=== PATIENT | male | born 1970 | race Caucasian/White ===

== ENCOUNTER 2016-05-05 14:10 | Emergency (ER) | payer MEDICARE ==
[2016-05-05 14:23] VITALS: O2SAT 96
--- NOTE | 2016-05-05 14:37 | ERPHSYRPT ---
- History of Present Illness Time Seen by Provider: 05/05/16 14:27 Source: other (patient's caregiver) Exam Limitations: other (patient with history of Down's with poor communication) Patient Subjective Stated Complaint: PT CAREGIVER REPORTS NOTICING A BRUISE TO RIGHT LOWER LEG-REPORTS TODAY AREA IS WARM TO TOUCH-UNSURE OF ANY INJURY Triage Nursing Assessment: PT UNABLE TO ANSWER QUESTIONS-NO SWELLING NO REDNESS NO WARM AREA NOTED-PEDAL PULSES PRESENT-SLIGHT BRUISING NOTED TO XIONG Physician History: This is a 45-year-old white male with history of Down syndrome, PTSD, OCD, cerebral palsy, hearing loss, borderline cardiac enlargement, mitral valve prolapse, chronic otitis media, tinea pedis, osteoporosis, a vitamin, and seborrhea He is brought by his caregiver with complaint that the patient has some mild discoloration of the right anterior xiong caregiver is concerned that the patient has some swelling in the area and they're worried about a blood clot. There is no real history of trauma however patient is unable to express whether he was injured or not. Patient does have some brownish discoloration of the right anterior xiong and some slight tenderness with palpation with slight edema anteriorly. Past medical history as noted above. Method of Injury: unknown Occurred: this morning (patient was noted this morning to have swelling and slight brownish discoloration of skin right anterior leg) Quality: constant Severity of Pain-Max: mild Severity of Pain-Current: mild Lower Extremities Pain: leg: right Modifying Factors: Improves With: nothing Associated Symptoms: none Allergies/Adverse Reactions: clindamycin Allergy (Intermediate, Verified 05/05/16 14:23) Hives Home Medications: Risperidone [Risperdal] 0.5 mg PO BID 05/05/16 [History] Sertraline HCl 50 mg [Zoloft 50 mg Tablet] 50 mg PO BID 05/05/16 [History] Hx Tetanus, Diphtheria Vaccination/Date Given: No Hx Influenza Vaccination/Date Given: Yes (2015) Hx Pneumococcal Vaccination/Date Given: Yes Immunizations Up to Date: Yes - Review of Systems Constitutional: No Fever, No Chills Eyes: No Symptoms Ears, Nose, & Throat: No Symptoms Respiratory: No Cough, No Dyspnea Cardiac: No Chest Pain, No Edema, No Syncope Abdominal/Gastrointestinal: No Abdominal Pain, No Nausea, No Vomiting, No Diarrhea Genitourinary Symptoms: No Dysuria Musculoskeletal: Other (brownish discoloration skin anterior right leg slight swelling of right anterior leg tenderness with palpation right anterior leg) Skin: Other (light brownish discoloration right anterior leg) Neurological: No Dizziness, No Focal Weakness, No Sensory Changes Psychological: No Symptoms Endocrine: No Symptoms All Other Systems: Reviewed and Negative - Past Medical History Pertinent Past Medical History: Yes Other Medical History: DOWN SYNDROME - Past Surgical History Past Surgical History: No - Social History Smoking Status: Never smoker Exposure to second hand smoke: No Drug Use: none Patient Lives Alone: No - Nursing Vital Signs Nursing Vital Signs: Initial Vital Signs Temperature 97.8 F Temperature Source Oral Pulse Rate 64 Respiratory Rate 16 Blood Pressure [] 96/63 Pain Intensity 0 - Physical Exam General Appearance: alert, other (white male he is alert cooperative in no apparent distress) Eyes, Ears, Nose, Throat Exam: moist mucous membranes Neck Exam: non-tender, supple Cardiovascular/Respiratory Exam: chest non-tender, normal breath sounds, regular rate/rhythm, no respiratory distress Gastrointestinal/Abdominal Exam: non-tender, guarding Back Exam: normal inspection, No vertebral tenderness Hips Exam: bilateral: non-tender, normal inspection, normal range of motion, no evidence of injury Legs Exam: right leg: other (right anterior leg with brownish discoloration anteriorly slight edema anteriorly and tenderness with palpation at mid leg level), left leg: non-tender, normal inspection, no evidence of injury, bilateral leg: normal range of motion Knees Exam: bilateral knee: non-tender, normal inspection, normal range of motion, no evidence of injury Ankle Exam: bilateral ankle: non-tender, normal inspection, normal range of motion, no evidence of injury Foot Exam: bilateral foot: non-tender, normal inspection, normal range of motion , no evidence of injury DTR - Lower Extremities Exam: ankle (R): 2+, ankle (L): 2+ Neuro/Tendon Exam: normal sensation, normal motor functions Mental Status Exam: alert, cooperative, other (patient is oriented to himself able to answer questions but difficult to understand this is his norm) Skin Exam: other (Slight brownish discoloration right anterior xiong) SpO2 Interpretation: normal (96%) SpO2: 96 Oxygen Delivery: Room Air - Course Nursing assessment & vital signs reviewed: Yes - Radiology Exams Right Lower Leg X-ray Interpretation: Discussed w/ radiologist, Negative, No Fracture, No Subluxation Ordered Tests: Active Orders 24 hr Category Date Time Status LOWER LEG Stat Exams 05/05/16 14:31 Completed BMP Stat Lab 05/05/16 15:00 Completed CBC W DIFF Stat Lab 05/05/16 15:00 Completed D-DIMER QUANTITATION Stat Lab 05/05/16 15:00 Completed Lab/Rad Data: Laboratory Result Diagrams 05/05/16 15:00 05/05/16 15:00 Laboratory Results 05/05/16 05/05/16 05/05/16 Range/Units 15:00 15:00 15:00 WBC 5.4 (4.0-10.5) K/mm3 RBC 4.01 L (4.1-5.6) M/mm3 Hgb 13.3 (12.5-18.0) gm/dl Hct 39.6 L (42-50) % MCV 98.8 (78-100) fl MCH 33.1 H (26-32) pg MCHC 33.6 (32-36) g/dl RDW 14.1 H (11.5-14.0) % Plt Count 244 (150-450) K/mm3 MPV 9.5 (6-9.5) fl Gran % 48.2 (36.0-66.0) % Lymphocytes % 33.7 (24.0-44.0) % Monocytes % 14.8 H (0.0-12.0) % Eosinophils % 1.3 (0.00-5.0) % Basophils % 2.0 (0.0-0.4) % Basophils # 0.11 (0-0.4) D-Dimer 0.371 (0.00-0.49) mg/L Sodium 140 (136-145) mEq/L Potassium 4.2 (3.5-5.1) mEq/L Chloride 106 (98-107) mEq/L Carbon Dioxide 24.6 (21-32) mEq/L Anion Gap 14.0 (5-15) MEQ/L BUN 24 H (9-20) mg/dL Creatinine 1.10 (0.55-1.30) mg/dl Estimated GFR > 60 ML/MIN Glucose 69 L (70-110) MG/DL Calcium 8.3 L (8.5-10.1) mg/dL - Progress Progress: improved Progress Note: 05/05/16 16:09 Patient's d-dimer is within normal limits x-ray right leg no fractures CBC essentially normal. BMP essentially normal with the exception of a glucose of 69. Will plan to discharge patient cold packs to area 24-48 hours. Tylenol as needed for pain - Departure Time of Disposition: 16:09 Departure Disposition: Home Clinical Impression: Contusion of right leg Qualifiers: Encounter type: initial encounter Qualified Code(s): S80.11XA - Contusion of right lower leg, initial encounter Condition: Good Critical Care Time: No Referrals: INDU WAITE [Primary Care Provider] - Instructions: Contusion Additional Instructions: Return home. Cold packs to area 24-48 hours. Tylenol every 4-6 hours as needed for pain. Follow-up with your family symptoms are worse no better in 48 hours or persist longer than one week. Return for acute distress or for severe symptoms.
--- NOTE | 2016-05-05 14:58 | XRAY ---
Indication: Mid to lower leg pain and bruising. Comparison: None 2 views of the right lower leg demonstrates mild ankle soft tissue swelling. No other bony, articular, or soft tissue abnormalities.
[2016-05-05 15:05] LABS: Eosinophil % 1.3 % (0.00-5.0); Granulocytes % 48.2 % (36.0-66.0); Lymphocytes % 33.7 % (24.0-44.0); Mean Cell Volume 98.8 fl (78-100); Mean Platelet Volume 9.5 fl (6-9.5); Monocytes % 14.8 % (0.0-12.0); Platelet Count 244 K/mm3 (150-450); Red Blood Count 4.01 M/mm3 (4.1-5.6); Red Cell Distribution Width 14.1 % (11.5-14.0); White Blood Count 5.4 K/mm3 (4.0-10.5)
[2016-05-05 15:10] LABS: Mean Corpuscular Hemoglobin 33.1 pg (26-32)
[2016-05-05 15:52] VITALS: BP 96/63; PULSE 64
[2016-05-05 16:02] LABS: BLOOD UREA NITROGEN 24 mg/dL (9-20); CHLORIDE 106 mEq/L (98-107); Carbon Dioxide 24.6 mEq/L (21-32); Glucose 69 MG/DL (70-110); Potassium 4.2 mEq/L (3.5-5.1); SODIUM 140 mEq/L (136-145)
== END 2016-05-05 16:36 | disposition home or self-care (01) ==
LOC: ED 14:10
DX: S80.11XA Contusion of right lower leg, initial encounter (principal); Q90.9 Down syndrome, unspecified
CPT/HCPCS: 36415; 73590; 80048; 85025; 85379; 99283

== ENCOUNTER 2016-11-23 20:23 | Emergency (ER) | payer MEDICARE ==
[2016-11-23] MEDS ORDERED: Sodium Chloride 0.9% 1000 ML 1,000 ML IV STA (21:13)
[2016-11-23] MEDS ORDERED: Phenergan 25 MG INJ IV ONE (21:13)
[2016-11-23] MEDS ORDERED: ROCEPHIN 1 Gm-D5w 50 ml Bag** 1 G/50 ML IVPB IV STA (21:14)
[2016-11-23] MEDS ORDERED: Phenergan 25 MG INJ ONE (21:19)
[2016-11-23] MEDS ORDERED: Sodium Chloride 0.9% 1000 ML 1,000 ML ONE (21:19)
[2016-11-23] MEDS ORDERED: ROCEPHIN 1 Gm-D5w 50 ml Bag** 1 G/50 ML IVPB IV ONE (21:19)
--- NOTE | 2016-11-23 21:20 | ERPHSYRPT ---
- History of Present Illness Time Seen by Provider: 11/23/16 20:53 Source: family, other (4 TRUJILLO ATTENDENT) Patient Subjective Stated Complaint: [facility] states that pt has had a rash to face and abd. states pt had been vomiting forcefully at approx 1630 Triage Nursing Assessment: pt awake and alert, answers questions. respirations nonlabored with lungs cta. pt ambulatory with steady gait noted. skin pink warm and dry. fine red flat rash to face. small red raised areas to abd. abd soft and nontender, bowel sounds present. Physician History: REPORTEDLY PT VOMITED X1 AT 1630 TODAY AND ABOUT 1 HOUR LATER A RASH DEVELOPED ON THE FACE AND ABDOMEN. PT ALSO C/O MID ABDOMINAL PAIN TONIGHT. DIARRHEA, FEVER , CHEST PAIN, SHORTNESS OF AIR, COUGH ALL DENIED. LAST BM WAS THIS AM. Allergies/Adverse Reactions: clindamycin Allergy (Intermediate, Verified 11/23/16 20:50) Hives Home Medications: Risperidone [Risperdal] 0.5 mg PO BID 05/05/16 [History] Sertraline HCl 50 mg [Zoloft 50 mg Tablet] 50 mg PO BID 05/05/16 [History] Hx Tetanus, Diphtheria Vaccination/Date Given: No Hx Influenza Vaccination/Date Given: Yes (2015) Hx Pneumococcal Vaccination/Date Given: Yes Immunizations Up to Date: No - Review of Systems Constitutional: No Fever Respiratory: No Dyspnea Cardiac: No Chest Pain Abdominal/Gastrointestinal: Abdominal Pain, Vomiting, No Diarrhea Skin: Rash All Other Systems: Reviewed and Negative - Past Medical History Pertinent Past Medical History: Yes Cardiac History: Other Musculoskeletal History: Osteoporosis Psycho-Social History: Other Other Medical History: DOWN SYNDROME, ptsd, ocd, hearing loss, borderline cardiac enlargement, mvp, chronic otitis media, seborrhea dermatitis - Past Surgical History Past Surgical History: No - Social History Smoking Status: Never smoker Exposure to second hand smoke: No Drug Use: none Patient Lives Alone: No - Nursing Vital Signs Nursing Vital Signs: Initial Vital Signs Temperature 98.4 F 11/23/16 20:35 Pulse Rate 58 L 11/23/16 20:35 Respiratory Rate 18 11/23/16 20:35 Blood Pressure 121/69 11/23/16 20:35 O2 Sat by Pulse Oximetry 98 11/23/16 20:35 Pain Scale Pain Intensity 0 - Physical Exam General Appearance: alert Eye Exam: PERRL/EOMI Ears, Nose, Throat Exam: moist mucous membranes, pharyngeal erythema, other ( CERUMEN OCCLUSION OF RIGHT EAC) Neck Exam: normal inspection Respiratory Exam: lungs clear Cardiovascular Exam: normal heart sounds Gastrointestinal/Abdomen Exam: soft, other (B.S. MILDLY HYPERACTIVE AND NORMOTONIC) Back Exam: normal range of motion Extremity Exam: No pedal edema Neurologic Exam: alert, cooperative Skin Exam: rash (SCARLETINIFORM RASH ON TRUNK, FACE AND EXTREMITIES) SpO2 Interpretation: normal SpO2: 99 Oxygen Delivery: Room Air - Course Nursing assessment & vital signs reviewed: Yes Ordered Tests: Active Orders 24 hr Category Date Time Status IV Insertion STAT Care 11/23/16 21:13 Active AMYLASE Stat Lab 11/23/16 21:30 Completed CBC W DIFF Stat Lab 11/23/16 21:30 Completed CMP Stat Lab 11/23/16 21:30 Completed LIPASE Stat Lab 11/23/16 21:30 Completed [place] Screen Stat Lab 11/23/16 21:30 Completed STREP SCREEN-BETA A Stat Lab 11/23/16 Uncollected UA W/RFX UR CULTURE Stat Lab 11/23/16 22:13 Completed Medication Summary Discontinued Medications Generic Name Dose Route Start Last Admin Trade Name Freq PRN Reason Stop Dose Admin Ceftriaxone Sodium/Dextrose 1 g in 50 mls @ 100 mls/hr 11/23/16 21:14 21:23 Rocephin 1 Gm-D5w 50 Ml Bag IV 11/23/16 21:43 100 mls/hr STAT STA Administration Sodium Chloride 1,000 mls @ 999 mls/hr 11/23/16 21:13 11/23/16 21:23 Sodium Chloride 0.9% 1000 Ml IV 11/23/16 22:13 999 mls/hr .Q1H1M STA Administration Sodium Chloride Confirm 11/23/16 21:19 Sodium Chloride 0.9% 1000 Ml Administered 11/23/16 21:20 Dose 1,000 mls @ ud .ROUTE .STK-MED ONE Ceftriaxone Sodium/Dextrose Confirm 11/23/16 21:19 Rocephin 1 Gm-D5w 50 Ml Bag Administered 11/23/16 21:20 Dose 1 g in 50 mls @ ud IV .STK-MED ONE Promethazine HCl 12.5 mg 11/23/16 21:13 11/23/16 21:23 Phenergan 25 Mg Inj IV 11/23/16 21:14 12.5 mg STAT ONE Administration Promethazine HCl Confirm 11/23/16 21:19 Phenergan 25 Mg Inj Administered 11/23/16 21:20 Dose 25 mg .ROUTE .STK-MED ONE Lab/Rad Data: Laboratory Result Diagrams 11/23/16 21:30 11/23/16 21:30 Laboratory Results 11/23/16 11/23/16 11/23/16 Range/Units 22:13 21:30 21:30 WBC (4.0-10.5) K/mm3 RBC (4.1-5.6) M/mm3 Hgb (12.5-18.0) gm/dl Hct (42-50) % MCV (78-100) fl MCH (26-32) pg MCHC (32-36) g/dl RDW (11.5-14.0) % Plt Count (150-450) K/mm3 MPV (6-9.5) fl Gran % (36.0-66.0) % Lymphocytes % (24.0-44.0) % Monocytes % (0.0-12.0) % Eosinophils % (0.00-5.0) % Basophils % (0.0-0.4) % Basophils # (0-0.4) Sodium (136-145) mEq/L Potassium (3.5-5.1) mEq/L Chloride (98-107) mEq/L Carbon Dioxide (21-32) mEq/L Anion Gap (5-15) MEQ/L BUN (9-20) mg/dL Creatinine (0.55-1.30) mg/dl Estimated GFR ML/MIN Glucose (70-110) MG/DL Calcium (8.5-10.1) mg/dL Total Bilirubin (0.2-1.0) mg/dL AST (15-37) U/L ALT (12-78) U/L Alkaline Phosphatase (46-116) U/L Serum Total Protein (6.4-8.2) gm/dL Albumin (3.4-5.0) g/dL Amylase (25-115) U/L Lipase (73-393) U/L Ur Collection Type CLEAN CATCH Urine Color LT.YELLOW (YELLOW) Urine Appearance CLEAR (CLEAR) Urine pH 8.0 (5-6) Ur Specific [place] 1.010 (1.005-1.025) Urine Protein NEGATIVE (Negative) Urine Ketones NEGATIVE (NEGATIVE) Urine Blood NEGATIVE (0-5) Maicol/ul Urine Nitrite NEGATIVE (NEGATIVE) Urine Bilirubin NEGATIVE (NEGATIVE) Urine Urobilinogen NORMAL (0-1) mg/dL Ur Leukocyte Esterase NEGATIVE (NEGATIVE) Urine Glucose NEGATIVE (NEGATIVE) mg/dL Monoscreen NEGATIVE (Negative) Influenza Type A Ag NEGATIVE (NEGATIVE) Influenza Type B Ag NEGATIVE (NEGATIVE) RSV (PCR) NEGATIVE (Negative) Specimen Received 11/23/16 2210 11/23/16 11/23/16 Range/Units 21:30 21:30 WBC 5.9 (4.0-10.5) K/mm3 RBC 4.52 (4.1-5.6) M/mm3 Hgb 15.0 (12.5-18.0) gm/dl Hct 45.0 (42-50) % MCV 99.6 (78-100) fl MCH 33.2 H (26-32) pg MCHC 33.3 (32-36) g/dl RDW 14.2 H (11.5-14.0) % Plt Count 205 (150-450) K/mm3 MPV 9.3 (6-9.5) fl Gran % 54.0 (36.0-66.0) % Lymphocytes % 31.5 (24.0-44.0) % Monocytes % 11.5 (0.0-12.0) % Eosinophils % 1.5 (0.00-5.0) % Basophils % 1.5 (0.0-0.4) % Basophils # 0.09 (0-0.4) Sodium 139 (136-145) mEq/L Potassium 4.8 (3.5-5.1) mEq/L Chloride 104 (98-107) mEq/L Carbon Dioxide 28.9 (21-32) mEq/L Anion Gap 11.3 (5-15) MEQ/L BUN 15 (9-20) mg/dL Creatinine 1.17 (0.55-1.30) mg/dl Estimated GFR > 60 ML/MIN Glucose 82 (70-110) MG/DL Calcium 9.1 (8.5-10.1) mg/dL Total Bilirubin 0.20 (0.2-1.0) mg/dL AST 19 (15-37) U/L ALT 17 (12-78) U/L Alkaline Phosphatase 48 (46-116) U/L Serum Total Protein 8.9 H (6.4-8.2) gm/dL Albumin 3.9 (3.4-5.0) g/dL Amylase 51 (25-115) U/L Lipase 107 (73-393) U/L Ur Collection Type Urine Color (YELLOW) Urine Appearance (CLEAR) Urine pH (5-6) Ur Specific [place] (1.005-1.025) Urine Protein (Negative) Urine Ketones (NEGATIVE) Urine Blood (0-5) Maicol/ul Urine Nitrite (NEGATIVE) Urine Bilirubin (NEGATIVE) Urine Urobilinogen (0-1) mg/dL Ur Leukocyte Esterase (NEGATIVE) Urine Glucose (NEGATIVE) mg/dL Monoscreen (Negative) Influenza Type A Ag (NEGATIVE) Influenza Type B Ag (NEGATIVE) RSV (PCR) (Negative) Specimen Received - Departure Time of Disposition: 23:12 Departure Disposition: Home Clinical Impression: PHARYNGITIS, RASH, VOMITING, DOWN'S SYNDROME Condition: Stable Critical Care Time: No Referrals: INDU WAITE [Primary Care Provider] - Instructions: Pharyngitis/Tonsillopharyngitis -- Adult, Vomiting -- Adult Additional Instructions: FOLLOW UP WITH PRIVATE DOCTOR TOMORROW. Prescriptions: Promethazine HCl 25 mg [Phenergan 25 mg] 25 mg PO Q4H PRN PRN #14 tablet PRN Reason: Nausea/Vomiting Azithromycin 250 mg [Zithromax 250 MG TABLET] 250 mg PO ZPACK #6 tablet
[2016-11-23 21:39] LABS: BASOPHIL % 1.5 % (0.0-0.4); Eosinophil % 1.5 % (0.00-5.0); Lymphocytes % 31.5 % (24.0-44.0); Mean Cell Volume 99.6 fl (78-100); Mean Corpuscular Hemoglobin 33.2 pg (26-32); Mean Platelet Volume 9.3 fl (6-9.5); Monocytes % 11.5 % (0.0-12.0); Platelet Count 205 K/mm3 (150-450); Red Blood Count 4.52 M/mm3 (4.1-5.6); Red Cell Distribution Width 14.2 % (11.5-14.0); White Blood Count 5.9 K/mm3 (4.0-10.5)
[2016-11-23 21:58] LABS: ALBUMIN 3.9 g/dL (3.4-5.0); ALKALINE PHOSPHATASE 48 U/L (46-116); ANION GAP 11.3 MEQ/L (5-15); BLOOD UREA NITROGEN 15 mg/dL (9-20); CHLORIDE 104 mEq/L (98-107); Carbon Dioxide 28.9 mEq/L (21-32); Glucose 82 MG/DL (70-110); LIPASE 107 U/L (73-393); Potassium 4.8 mEq/L (3.5-5.1); SGOT/AST 19 U/L (15-37); SGPT/ALT 17 U/L (12-78); SODIUM 139 mEq/L (136-145); Total Protein 8.9 gm/dL (6.4-8.2)
[2016-11-23 22:15] LABS: Bilirubin NEGATIVE (NEGATIVE); Collection Type CLEAN CATCH; Glucose NEGATIVE (NEGATIVE); Leukocyte Esterase NEGATIVE (NEGATIVE)
[2016-11-23 22:16] LABS: ADD URINE CULTURE? NO (NO); Blood NEGATIVE Ery/ul (0-5); COMPLETE URINE MICROSCOPIC? NO
[2016-11-23 23:05] VITALS: PULSE 62
[2016-11-24 00:04] VITALS: BP 98/64; O2SAT 97
== END 2016-11-24 00:06 | disposition home or self-care (01) ==
LOC: ED 20:23
DX: J02.9 Acute pharyngitis, unspecified (principal); R21 Rash and other nonspecific skin eruption; R11.10 Vomiting, unspecified; Q90.9 Down syndrome, unspecified
CPT/HCPCS: 36000; 36415; 80053; 81002; 82150; 83690; 85025; 86308; 87070; 87430; 87631; 96360; 96365; 96374; 99284; J0696; J2550

== ENCOUNTER 2018-02-09 15:51 | Emergency (ER) | payer MEDICARE ==
[2018-02-09 16:03] VITALS: O2SAT 99
--- NOTE | 2018-02-09 16:11 | ERPHSYRPT ---
- History of Present Illness Time Seen by Provider: 02/09/18 16:05 Source: patient, other Patient Subjective Stated Complaint: pt chocked on a pill today and was given the hemlich and now needs to be checked out. it is a policy for [facility] Triage Nursing Assessment: pt laert, resp easy, skin w/d/p. eat lunch today with out any difficulty. chest clear Physician History: The patient is a 47-year-old male with Down syndrome with his caregiver who complains that about 7:00 this morning, 9 hours ago, he was taking his morning pills, when he choked on one of the pills. The caregiver at the time did the Heimlich maneuver and produced the pill. He then retook the pill without difficulty. All day long he has been eating and drinking without difficulty. He is not short of breath. The caregiver this afternoon was just told about the incident and brought him in per their protocol. Timing/Duration: abrupt onset, this morning Severity: moderate ENT Location: throat Prearrival Treatment: no prearrival treatment (Heimlich) Modifying Factors: Improves With: nothing Associated Symptoms: denies symptoms Allergies/Adverse Reactions: clindamycin Allergy (Intermediate, Verified 02/09/18 16:05) Hives Home Medications: Risperidone [Risperdal] 0.5 mg PO BID 05/05/16 [History] Sertraline HCl 50 mg [Zoloft 50 mg Tablet] 50 mg PO BID 05/05/16 [History] Hx Tetanus, Diphtheria Vaccination/Date Given: No Hx Influenza Vaccination/Date Given: Yes Hx Pneumococcal Vaccination/Date Given: Yes Immunizations Up to Date: Yes - Review of Systems Constitutional: No Fever, No Chills Eyes: No Symptoms Ears, Nose, & Throat: Other (foreign body in throat) Respiratory: Dyspnea, No Cough Cardiac: No Chest Pain, No Edema, No Syncope Abdominal/Gastrointestinal: No Abdominal Pain, No Nausea, No Vomiting, No Diarrhea Genitourinary Symptoms: No Dysuria Musculoskeletal: No Back Pain, No Neck Pain Skin: No Rash Neurological: No Dizziness, No Focal Weakness, No Sensory Changes Psychological: No Symptoms Endocrine: No Symptoms Hematologic/Lymphatic: No Symptoms Immunological/Allergic: No Symptoms All Other Systems: Reviewed and Negative - Past Medical History Pertinent Past Medical History: Yes Cardiac History: Other Musculoskeletal History: Osteoporosis Psycho-Social History: Other Other Medical History: DOWN SYNDROME, ptsd, ocd, hearing loss, borderline cardiac enlargement, mvp, chronic otitis media, seborrhea dermatitis - Past Surgical History Past Surgical History: No - Social History Smoking Status: Never smoker Exposure to second hand smoke: No Drug Use: none Patient Lives Alone: No - Nursing Vital Signs Nursing Vital Signs: Initial Vital Signs Temperature 98.0 F 02/09/18 15:54 Pulse Rate 73 02/09/18 15:54 Respiratory Rate 16 02/09/18 15:54 Blood Pressure 124/67 02/09/18 15:54 O2 Sat by Pulse Oximetry 99 02/09/18 15:54 Pain Scale Pain Intensity 0 - Physical Exam General Appearance: no apparent distress, alert Eye Exam: bilateral eye: PERRL, EOMI Ear Exam: bilateral ear: auricle normal Nasal Exam: normal inspection Throat Exam: pharynx normal, moist mucus membranes, No tonsillar exudate Neck Exam: supple Cardiovascular/Respiratory Exam: normal breath sounds, regular rate/rhythm Abdominal Exam: non-tender, soft Neurologic Exam: alert, oriented x 3, sensation nml, No motor deficits Skin Exam: normal color, warm, dry SpO2 Interpretation: normal SpO2: 99 Oxygen Delivery: Room Air - Progress Progress: unchanged Progress Note: 02/09/18 16:14 Pt drank water in ER without difficulty. - Departure Time of Disposition: 16:14 Departure Disposition: Home Clinical Impression: Foreign body in throat Condition: Stable Critical Care Time: No Referrals: INDU WAIET [Primary Care Provider] - Additional Instructions: You had a pill stuck in your throat this morning that was dislodged at home. You are now able to swallow water and eat food without difficulty. Follow-up with her primary medical doctor as needed.
[2018-02-09 16:27] VITALS: BP 112/69; PULSE 64
== END 2018-02-09 16:38 | disposition home or self-care (01) ==
LOC: ED 15:51
DX: T18.198A Other foreign object in esophagus causing other injury, initial encounter (principal); Z79.899 Other long term (current) drug therapy
CPT/HCPCS: 99283

== ENCOUNTER 2022-03-29 09:05 | Day surgery (SDC) | payer MEDICARE ==
--- NOTE | 2022-03-29 09:03 | HP ---
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 PAST MEDICAL HISTORY: Mitral valve prolapse. Trisomy-21. Obsessive-compulsive disorder. Down's syndrome. Post-traumatic stress disorder. PAST SURGICAL HISTORY: Tonsillectomy. EGD. MEDICATIONS: Tri-Kathryn topical cream, tamsulosin, Solarcaine topical spray, Sertraline, pantoprazole, multivitamin, Milk of Magnesia, melatonin, loratadine, loperamide, Imodium A-D, ibandronate sodium, Banophen, aripiprazole, acetaminophen. ALLERGIES: CLINDAMYCIN (HIVES). FAMILY HISTORY: Negative in regards to this problem. SOCIAL HISTORY: No smoking or alcohol abuse. REVIEW OF SYSTEMS: Poor historian. Fourteen systems reviewed. No chest pain or palpitations. Other systems negative or noncontributory as above and per preadmission questionnaire. She has had some dysphagia unclear on details. PHYSICAL EXAMINATION: BMI 34.7. Weight 184 pounds. GENERAL: No acute distress. HEENT: Sclerae nonicteric. NECK: No JVD. CHEST: Equal excursion, nonlabored breathing. CVS: Regular rate and rhythm. ABDOMEN: Soft. No peritoneal signs. EXTREMITIES: No significant edema. NEURO: Alert, oriented, moving extremities symmetrically. RECTAL: Deferred timed to endoscopy exam. PSYCH: Appropriate mood and affect. SKIN: Dry. IMPRESSION: Dysphagia, needs EGD possible dilatation. Risks and benefits explained in detail including but not limited to risk of bleeding or infection, risk of bowel injury or perforation, risk of bowel injury or perforation, risk of missed or nondiagnosis or incomplete exam, possibly requiring barium swallow, other studies or procedures. General risk of anesthesia or sedation, risk of bowel prep but not limited to, possibility of dilatation performed may not improve her swallowing and may need further work up and/or testing. If dilatation is performed and does improve, she might need repeat dilatation down the road. Will proceed with EGD with possible biopsy, possible dilatation.
[2022-03-29] MEDS ORDERED: Lactated Ringers 1,000 ML IV SCH (10:00)
[2022-03-29] MEDS ORDERED: DIPRIVAN 200 MG/20 ML IV ONE (10:58)
[2022-03-29] MEDS ORDERED: Xylocaine-Mpf 2% 5 Ml Vial ONE (10:58)
[2022-03-29] MEDS ORDERED: Versed 2 MG/2 ML Injection ONE (10:58)
[2022-03-29 12:04] VITALS: BP 120/77; PULSE 62; O2SAT 99
--- NOTE | 2022-03-29 14:55 | OP ---
SURGERY DATE/TIME: 03/29/2022 1103 PREOPERATIVE DIAGNOSIS: Dysphagia. POSTOPERATIVE DIAGNOSES: 1) Minimal gastritis. 2) Distal esophageal symptomatic narrowing and spasm, questionable short segment of mild inflammation, path pending. 3) ASA Class III. PROCEDURES: 1) EGD with cold biopsy to antrum to evaluate for Helicobacter pylori. 2) Cold biopsy distal esophagus to evaluate for early inflammation. 3) Distal esophageal balloon dilatation (size 20 balloon dilator) symptomatic distal esophageal narrowing and spasm. SURGEON: Dr. Black Saldaña. ANESTHESIA: MAC. ESTIMATED BLOOD LOSS: Minimal. INDICATIONS: As noted above. Risks and benefits explained in detail and not limited to and consent was obtained. DESCRIPTION OF PROCEDURE AND FINDINGS: The patient is taken to the endoscopy room. MAC anesthesia introduced. After official time out and no disagreement with planned procedure, bite block positioned. Video gastroscope passed down the proximal esophagus. It seems to be widely patent. Down the distal esophagus where seemed to have some mild narrowing and because of the dysphagia, it was felt this warranted dilatation because of symptom swallowing in this area. The scope is passed through to the third portion of the duodenum. Third, second, first portion of the duodenum grossly unremarkable. Back in the stomach, he did have some mild gastric erythema consistent with some minimal gastritis. Cold biopsy taken to evaluate for Helicobacter pylori. Good hemostasis noted. On retroflex, the gastroesophageal junction snug against the scope. No signs of any hiatal hernia. Gastroesophageal junction about 40 cm. There was a little short segment of questionable salmon-pink mucosa extending upwards with some mild inflammation. Cold biopsy taken. Good hemostasis noted. The remainder of the esophagus had some tertiary contractions of the esophagus but otherwise no signs of any other mucosal lesions. It was felt the distal esophagus warranted dilatation given the dysphagia problems. Scope passed back down the stomach. The balloon catheter carefully passed. It was then pulled back up and then gradually inflated. First stage 30 seconds, second stage 30 seconds, final stage for 2 minutes in the distal esophagus with size 20 balloon dilator maximum dilatation. The balloon catheter is then released and withdrawn. The scope much more easily passed through this area. There were no signs of any full thickness issues secondary to dilatation. The patient tolerated the procedure well. There were no immediate complications. Findings discussed with the family out in the waiting area.
== END 2022-03-29 10:25 | disposition home or self-care (01) ==
LOC: SDC 09:05
PROVIDERS: ATTEND Surgery
DX: K29.70 Gastritis, unspecified, without bleeding (principal); R13.10 Dysphagia, unspecified; K22.2 Esophageal obstruction
CPT/HCPCS: C1726; J2250; J2704